=== PATIENT | female | born 1965 | race Caucasian/White ===

== ENCOUNTER 2021-03-03 12:57 | Emergency (ER) | payer OTHER ==
[~2021-03-03] VITALS: Ht 154.9 cm; Wt 71.0 kg
[2021-03-03 13:30] VITALS: BP 135/78
[2021-03-03] MEDS ORDERED: IBUPROFEN 600MG TABLET PO ONE (13:30)
== END 2021-03-03 14:50 | disposition home or self-care (01) ==
LOC: ER 12:57
DX: R51.9 Headache, unspecified (principal); E11.9 Type 2 diabetes mellitus without complications; Z77.21 Contact with and (suspected) exposure to potentially hazardous body fluids; Z88.0 Allergy status to penicillin
CPT/HCPCS: 99283